=== PATIENT | female | born 1965 | race Two or more races ===

== ENCOUNTER 2016-12-09 16:16 | Inpatient (IN) | payer OTHER ==
[~2016-12-09] VITALS: Ht 160 cm; Wt 64.9 kg
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
--- NOTE | 2016-12-09 16:53 | Diagnostic Imaging Report ---
Indications: Altered mental status Technique: Spiral acquisitions obtained through the brain. Angled axial and coronal 5 x 5 mm slices were reconstructed. Total dose length product 1333 mGycm. CTDI vol(s) 70 mGy. Dose reduction achieved using automated exposure control Comparison: None Findings: No acute intracranial hemorrhage or edema. No mass effect or midline shift. Normal field-white differentiation. Old lacunar infarct is seen the posterior limb of the right internal capsule. Normal size ventricles and extra axial CSF spaces. There is bilateral maxillary sinus mucosal thickening. Intact calvarium. Mastoids are clear. Impression: Old right posterior limb internal capsule lacunar infarct. Negative for acute intracranial bleed or mass effect. The CT scanner at [facility] is accredited by the [employer] and the scans are performed using protocols designed to limit radiation exposure to as low as reasonably achievable to attain images of sufficient resolution adequate for diagnostic evaluation.
[2016-12-09 17:38] LABS: BASOPHILS % (AUTO) 0.8 % (0.0-2.0); EOSINOPHILS % (AUTO) 2.1 % (0.0-3.0); LYMPHOCYTES % (AUTO) 27.9 % (20.0-45.0); MEAN CORPUSCULAR HEMOGLOBIN 25.2 PG (27.0-31.0); MEAN CORPUSCULAR HGB CONC 29.9 G/DL (32.0-36.0); MEAN CORPUSCULAR VOLUME 84 FL (80-99); MEAN PLATELET VOLUME 6.7 FL (6.5-10.1); MONOCYTES % (AUTO) 9.2 % (1.0-10.0); PLATELET COUNT 342 K/UL (150-450); RED CELL DISTRIBUTION WIDTH 17.3 % (11.6-14.8); WHITE BLOOD COUNT 6.9 K/UL (4.8-10.8)
[2016-12-09 17:41] VITALS: BP 117/61
[2016-12-09 17:42] LABS: APPEARANCE,URINE CLEAR; KETONES,URINE NEGATIVE (NEGATIVE); LEUKOCYTE ESTERASE ,URINE 1+ (NEGATIVE); NITRITE,URINE NEGATIVE (NEGATIVE); PH,URINE 6 (4.5-8.0); PROTEIN,URINE NEGATIVE (NEGATIVE); UROBILINOGEN,URINE NORMAL MG/DL (0.0-1.0)
[2016-12-09] MEDS ORDERED: HYDROmorphone 1mg/ml Carpuject IVP ONE (17:45)
[2016-12-09 17:46] LABS: BACTERIA,URINE FEW /HPF; RBC,URINE 0-2 /HPF (0 - 2); SQUAMOUS EPITHELIAL CELL,UR FEW /LPF (NONE/OCC)
[2016-12-09 17:47] LABS: PROTHROMBIN TIME 10.6 SEC (9.30-11.50)
[2016-12-09 18:04] LABS: ALANINE AMINOTRANSFERASE 20 U/L (3-33); ALBUMIN/GLOBULIN RATIO 1.3 (1.0-2.7); ANION GAP 13 (5-15); ASPARTATE AMINO TRANSFERASE 22 U/L (5-40); CALCIUM 9.8 mg/dL (8.6-10.2); CARBON DIOXIDE 27 mEQ/L (20-30); CHLORIDE 100 mEQ/L (98-107); CREATININE 0.7 mg/dL (0.5-0.9); GLOMERULAR FILTRATION RATE > 60 mL/min (>60); HEMOLYSIS 1; POTASSIUM 3.5 mEQ/L (3.4-4.9); SODIUM 140 mEQ/L (135-145); TOTAL PROTEIN 7.6 g/dL (6.6-8.7); TROPONIN I < 0.30 ng/mL (<=0.30)
[2016-12-09 18:14] LABS: CKMB < 1.5 ng/mL (< 3.8)
[2016-12-09] MEDS ORDERED: HYDROmorphone 1mg/ml Carpuject IVP PRN ×3 (18:15→19:12)
--- NOTE | 2016-12-09 18:43 | Cardiology Progress Note ---
Assessment/Plan Assessment/Plan [id number] Objective Last 24 Hour Vital Signs Date Time Temp Pulse Resp B/P Pulse Ox O2 Delivery O2 Flow Rate FiO2 12/09/16 17:41 97.2 76 14 117/61 98 Room Air 12/09/16 16:27 97.2 85 12 131/57 98 Room Air Laboratory Tests Test 12/09/16 17:10 White Blood Count 6.9 K/UL (4.8-10.8) Red Blood Count 4.20 M/UL (4.20-5.40) Hemoglobin 10.6 G/DL (12.0-16.0) L Hematocrit 35.4 % (37.0-47.0) L Mean Corpuscular Volume 84 FL (80-99) Mean Corpuscular Hemoglobin 25.2 PG (27.0-31.0) L Mean Corpuscular Hemoglobin Concent 29.9 G/DL (32.0-36.0) L Red Cell Distribution Width 17.3 % (11.6-14.8) H Platelet Count 342 K/UL (150-450) Mean Platelet Volume 6.7 FL (6.5-10.1) Neutrophils (%) (Auto) 60.0 % (45.0-75.0) Lymphocytes (%) (Auto) 27.9 % (20.0-45.0) Monocytes (%) (Auto) 9.2 % (1.0-10.0) Eosinophils (%) (Auto) 2.1 % (0.0-3.0) Basophils (%) (Auto) 0.8 % (0.0-2.0) Prothrombin Time 10.6 SEC (9.30-11.50) Prothromb Time International Ratio 1.0 (0.9-1.1) Activated Partial Thromboplast Time 26 SEC (23-33) Urine Color Pale yellow Urine Appearance Clear Urine pH 6 (4.5-8.0) Urine Specific [place] 1.010 (1.005-1.035) Urine Protein Negative (NEGATIVE) Urine Glucose (UA) Negative (NEGATIVE) Urine Ketones Negative (NEGATIVE) Urine Occult Blood Negative (NEGATIVE) Urine Nitrite Negative (NEGATIVE) Urine Bilirubin Negative (NEGATIVE) Urine Urobilinogen Normal MG/DL (0.0-1.0) Urine Leukocyte Esterase 1+ (NEGATIVE) H Urine RBC 0-2 /HPF (0 - 2) Urine WBC 2-4 /HPF (0 - 2) Urine Squamous Epithelial Cells Few /LPF (NONE/OCC) Urine Bacteria Few /HPF (NONE) Urine HCG, Qualitative Negative Sodium Level 140 mEQ/L (135-145) Potassium Level 3.5 mEQ/L (3.4-4.9) Chloride Level 100 mEQ/L (98-107) Carbon Dioxide Level 27 mEQ/L (20-30) Anion Gap 13 (5-15) Blood Urea Nitrogen 9 mg/dL (7-23) Creatinine 0.7 mg/dL (0.5-0.9) Estimat Glomerular Filtration Rate > 60 mL/min (>60) Glucose Level 117 mg/dL (74-106) H Calcium Level 9.8 mg/dL (8.6-10.2) Total Bilirubin 0.2 mg/dL (0.0-1.2) Aspartate Amino Transf (AST/SGOT) 22 U/L (5-40) Alanine Aminotransferase (ALT/SGPT) 20 U/L (3-33) Alkaline Phosphatase 93 U/L (35-104) Total Creatine Kinase 35 U/L (26-140) Creatine Kinase MB < 1.5 ng/mL (< 3.8) Creatine Kinase MB Relative Index Troponin I < 0.30 ng/mL (<=0.30) Total Protein 7.6 g/dL (6.6-8.7) Albumin 4.4 g/dL (3.5-5.2) Globulin 3.2 g/dL Albumin/Globulin Ratio 1.3 (1.0-2.7) Urine Opiates Screen Positive (NEGATIVE) H Urine Barbiturates Screen Negative (NEGATIVE) Phencyclidine (PCP) Screen Negative (NEGATIVE) Urine Amphetamines Screen Negative (NEGATIVE) Urine Benzodiazepines Screen Negative (NEGATIVE) Urine Cocaine Screen Negative (NEGATIVE) Urine Marijuana (THC) Screen Negative (NEGATIVE) TWIN MARTINEZ Dec 09, 2016 18:43
[2016-12-09] MEDS ORDERED: Milk of Magnesia 30ml Ud ORAL PRN (18:45)
[2016-12-09] MEDS ORDERED: Norco 5mg/325mg tab ORAL PRN (18:45)
[2016-12-09 19:51] VITALS: BP 106/66
[2016-12-09 20:00] VITALS: BP 107/69
[2016-12-09] MEDS ORDERED: CYMBALTA20 MG ORAL (20:13)
[2016-12-09] MEDS ORDERED: LEVETIRACETAM750 MG ORAL (20:13)
[2016-12-09] MEDS ORDERED: NAPROXEN500 M2 ORAL (20:13)
[2016-12-09] MEDS ORDERED: CELEBREX100 MG ORAL (20:13)
[2016-12-09] MEDS ORDERED: NORCO 5-325 TA1 EACH ORAL (20:13)
[2016-12-09] MEDS ORDERED: GABAPENTIN600 MG ORAL (20:13)
[2016-12-09] MEDS ORDERED: GABAPENTIN300 MG ORAL (20:13)
[2016-12-09] MEDS: Docusate 100mg cap ORAL SCH (20:55)
[2016-12-09] MEDS: Heparin 5000 units/ml inj SUBQ SCH (20:56)
[2016-12-10 00:14] VITALS: BP 140/71
[2016-12-10 04:15] VITALS: BP 156/85
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
[2016-12-10] MEDS ORDERED: Naloxone 0.4mg/ml Inj IVP ONE (06:15)
[2016-12-10 06:53] LABS: ABG ALLEN TEST POSITIVE; ABG BASE EXCESS 1.8; ABG PCO2 47.7 mmHg (35.0-45.0)
[2016-12-10 07:35] VITALS: BP 139/76
[2016-12-10 08:15] LABS: BASOPHILS % (AUTO) 0.6 % (0.0-2.0); EOSINOPHILS % (AUTO) 0.4 % (0.0-3.0); LYMPHOCYTES % (AUTO) 8.3 % (20.0-45.0); MEAN CORPUSCULAR HEMOGLOBIN 26.5 PG (27.0-31.0); MEAN CORPUSCULAR HGB CONC 31.1 G/DL (32.0-36.0); MEAN CORPUSCULAR VOLUME 85 FL (80-99); MEAN PLATELET VOLUME 7.2 FL (6.5-10.1); MONOCYTES % (AUTO) 6.8 % (1.0-10.0); NEUTROPHILS % (AUTO) 83.9 % (45.0-75.0); PLATELET COUNT 340 K/UL (150-450); RED BLOOD COUNT 3.66 M/UL (4.20-5.40); RED CELL DISTRIBUTION WIDTH 17.4 % (11.6-14.8); WHITE BLOOD COUNT 9.8 K/UL (4.8-10.8)
[2016-12-10] MEDS: Heparin 5000 units/ml inj SUBQ SCH ×2 (08:31→20:55)
[2016-12-10] MEDS: Docusate 100mg cap ORAL SCH ×2 (08:34→20:54)
[2016-12-10] MEDS ORDERED: Naproxen 500mg tab ORAL SCH (09:00)
[2016-12-10] MEDS ORDERED: celeBREX 100mg Cap **SURGERY PATIENTS ONLY ORAL SCH (09:00)
[2016-12-10 09:11] LABS: ALANINE AMINOTRANSFERASE 21 U/L (3-33); ALBUMIN/GLOBULIN RATIO 1.3 (1.0-2.7); ANION GAP 12 (5-15); ASPARTATE AMINO TRANSFERASE 25 U/L (5-40); CALCIUM 9.5 mg/dL (8.6-10.2); CARBON DIOXIDE 27 mEQ/L (20-30); CHLORIDE 102 mEQ/L (98-107); CHOLESTEROL 201 mg/dL (< 200); CHOLESTEROL/HDL RATIO 3.7 (3.3-4.4); CREATININE 0.7 mg/dL (0.5-0.9); GLOMERULAR FILTRATION RATE > 60 mL/min (>60); HEMOLYSIS 1; LDL CHOLESTEROL (CALC.) 125 mg/dL (60-99); MAGNESIUM 1.7 mg/dL (1.7-2.5); POTASSIUM 3.6 mEQ/L (3.4-4.9); SODIUM 141 mEQ/L (135-145); TOTAL PROTEIN 7.2 g/dL (6.6-8.7)
[2016-12-10 09:43] LABS: HEMOGLOBIN A1C 5.9 % (< 6.0)
--- NOTE | 2016-12-10 11:24 | Diagnostic Imaging Report ---
Indication: Chest pain Technique: Single portable AP view of the chest. Findings: Comparison: None. Linear density left lung base. Right lung clear. The bones and extra pulmonary soft tissues, cardiomediastinal silhouette, pulmonary vasculature, and pleural surfaces are unremarkable. IMPRESSION: Subsegmental atelectasis versus scarring left lung base Otherwise negative portable AP chest.
[2016-12-10 11:55] VITALS: BP 141/71
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
[2016-12-10 16:11] VITALS: BP 149/78
[2016-12-10] MEDS ORDERED: traMADol 50mg tab ORAL PRN (16:45)
--- NOTE | 2016-12-10 17:22 | Cardiology Progress Note ---
Assessment/Plan Assessment/Plan 1. Posttraumatic pain in different parts of the body including the neck, low back, and right knee pain. 2. Posttraumatic right cerebral hemorrhage. 3. Posttraumatic convulsion and seizure history. 4. Posttraumatic quadriparesis and quadriplegia. 5. Urinary incontinence. 6. Right shoulder impingement syndrome with subacromial bursitis and supraspinatus tendinitis history. 7. Posttraumatic left-sided rib fracture. i was notified of pt having hypopenia and tachy post iv Dilaudid narcan was given pt improved back to normal pt claims got iv med then rn asked if she was still in pain adn adminsterd more pain meds thats when she had sob i have dcd all iv narcotic will need to sty with pos only she feels and looks better today then she did last ntie when i saw her in er is more responsive she is drinking her coffee stirring her coffee her colon therapist is at her bedside and we discussed lashanda above episode labs noted mri of brain and spine noted will d/s dr jeremy márquez cx still pending need snf she need alot of assistance with adl Objective Last 24 Hour Vital Signs Date Time Temp Pulse Resp B/P Pulse Ox O2 Delivery O2 Flow Rate FiO2 12/10/16 16:11 97.6 88 20 149/78 99 Room Air 12/10/16 15:44 95 12/10/16 11:55 98.1 99 20 141/71 99 Room Air 12/10/16 11:26 100 12/10/16 07:35 97.8 92 20 139/76 100 Nasal Cannula 2.0 12/10/16 07:28 101 12/10/16 04:15 98.6 82 19 156/85 97 Room Air 12/10/16 04:00 113 12/10/16 00:14 98.8 98 18 140/71 95 Room Air 12/10/16 00:00 95 12/09/16 20:00 77 12/09/16 20:00 97.2 75 22 107/69 97 Room Air 12/09/16 19:51 82 20 106/66 97 Room Air 12/09/16 19:51 97.2 82 20 106/66 97 Room Air 12/09/16 17:41 97.2 76 14 117/61 98 Room Air Intake and Output 12/09/16 12/10/16 19:00 07:00 # Voids 3 Laboratory Tests Test 12/09/16 17:10 12/10/16 06:45 12/10/16 07:15 White Blood Count 6.9 K/UL (4.8-10.8) 9.8 K/UL (4.8-10.8) Red Blood Count 4.20 M/UL (4.20-5.40) 3.66 M/UL (4.20-5.40) L Hemoglobin 10.6 G/DL (12.0-16.0) L 9.7 G/DL (12.0-16.0) L Hematocrit 35.4 % (37.0-47.0) L 31.2 % (37.0-47.0) L Mean Corpuscular Volume 84 FL (80-99) 85 FL (80-99) Mean Corpuscular Hemoglobin 25.2 PG (27.0-31.0) L 26.5 PG (27.0-31.0) L Mean Corpuscular Hemoglobin Concent 29.9 G/DL (32.0-36.0) L 31.1 G/DL (32.0-36.0) L Red Cell Distribution Width 17.3 % (11.6-14.8) H 17.4 % (11.6-14.8) H Platelet Count 342 K/UL (150-450) 340 K/UL (150-450) Mean Platelet Volume 6.7 FL (6.5-10.1) 7.2 FL (6.5-10.1) Neutrophils (%) (Auto) 60.0 % (45.0-75.0) 83.9 % (45.0-75.0) H Lymphocytes (%) (Auto) 27.9 % (20.0-45.0) 8.3 % (20.0-45.0) L Monocytes (%) (Auto) 9.2 % (1.0-10.0) 6.8 % (1.0-10.0) Eosinophils (%) (Auto) 2.1 % (0.0-3.0) 0.4 % (0.0-3.0) Basophils (%) (Auto) 0.8 % (0.0-2.0) 0.6 % (0.0-2.0) Prothrombin Time 10.6 SEC (9.30-11.50) Prothromb Time International Ratio 1.0 (0.9-1.1) Activated Partial Thromboplast Time 26 SEC (23-33) Urine Color Pale yellow Urine Appearance Clear Urine pH 6 (4.5-8.0) Urine Specific [place] 1.010 (1.005-1.035) Urine Protein Negative (NEGATIVE) Urine Glucose (UA) Negative (NEGATIVE) Urine Ketones Negative (NEGATIVE) Urine Occult Blood Negative (NEGATIVE) Urine Nitrite Negative (NEGATIVE) Urine Bilirubin Negative (NEGATIVE) Urine Urobilinogen Normal MG/DL (0.0-1.0) Urine Leukocyte Esterase 1+ (NEGATIVE) H Urine RBC 0-2 /HPF (0 - 2) Urine WBC 2-4 /HPF (0 - 2) Urine Squamous Epithelial Cells Few /LPF (NONE/OCC) Urine Bacteria Few /HPF (NONE) Urine HCG, Qualitative Negative Sodium Level 140 mEQ/L (135-145) 141 mEQ/L (135-145) Potassium Level 3.5 mEQ/L (3.4-4.9) 3.6 mEQ/L (3.4-4.9) Chloride Level 100 mEQ/L (98-107) 102 mEQ/L (98-107) Carbon Dioxide Level 27 mEQ/L (20-30) 27 mEQ/L (20-30) Anion Gap 13 (5-15) 12 (5-15) Blood Urea Nitrogen 9 mg/dL (7-23) 13 mg/dL (7-23) Creatinine 0.7 mg/dL (0.5-0.9) 0.7 mg/dL (0.5-0.9) Estimat Glomerular Filtration Rate > 60 mL/min (>60) > 60 mL/min (>60) Glucose Level 117 mg/dL (74-106) H 147 mg/dL (74-106) H Calcium Level 9.8 mg/dL (8.6-10.2) 9.5 mg/dL (8.6-10.2) Total Bilirubin 0.2 mg/dL (0.0-1.2) 0.2 mg/dL (0.0-1.2) Aspartate Amino Transf (AST/SGOT) 22 U/L (5-40) 25 U/L (5-40) Alanine Aminotransferase (ALT/SGPT) 20 U/L (3-33) 21 U/L (3-33) Alkaline Phosphatase 93 U/L (35-104) 88 U/L (35-104) Total Creatine Kinase 35 U/L (26-140) Creatine Kinase MB < 1.5 ng/mL (< 3.8) Creatine Kinase MB Relative Index Troponin I < 0.30 ng/mL (<=0.30) Total Protein 7.6 g/dL (6.6-8.7) 7.2 g/dL (6.6-8.7) Albumin 4.4 g/dL (3.5-5.2) 4.1 g/dL (3.5-5.2) Globulin 3.2 g/dL 3.1 g/dL Albumin/Globulin Ratio 1.3 (1.0-2.7) 1.3 (1.0-2.7) Urine Opiates Screen Positive (NEGATIVE) H Urine Barbiturates Screen Negative (NEGATIVE) Phencyclidine (PCP) Screen Negative (NEGATIVE) Urine Amphetamines Screen Negative (NEGATIVE) Urine Benzodiazepines Screen Negative (NEGATIVE) Urine Cocaine Screen Negative (NEGATIVE) Urine Marijuana (THC) Screen Negative (NEGATIVE) Arterial Blood pH 7.370 (7.350-7.450) Arterial Blood Partial Pressure CO2 47.7 mmHg (35.0-45.0) H Arterial Blood Partial Pressure O2 389.0 mmHg (75.0-100.0) H Arterial Blood HCO3 27.5 mmol/L (22.0-26.0) H Arterial Blood Oxygen Saturation 99.6 % (92.0-98.0) H Arterial Blood Base Excess 1.8 Mehul Test Positive Hemoglobin A1c 5.9 % (< 6.0) Magnesium Level 1.7 mg/dL (1.7-2.5) Triglycerides Level 104 mg/dL (< 150) Cholesterol Level 201 mg/dL (< 200) H LDL Cholesterol 125 mg/dL (60-99) H HDL Cholesterol 55 mg/dL (> 60) Cholesterol/HDL Ratio 3.7 (3.3-4.4) Vitamin B12 Level > 2000 pg/mL (211-946) H Thyroid Stimulating Hormone (TSH) 1.450 uIU/mL (0.300-4.500) TWIN MARTINEZ Dec 10, 2016 17:22
[2016-12-10] MEDS: traMADol 50mg tab ORAL PRN (17:23)
[2016-12-10] MEDS ORDERED: Norco 5mg/325mg tab ORAL PRN ×2 (17:30→18:17)
[2016-12-10 20:09] VITALS: BP 111/54
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
[2016-12-11 00:01] VITALS: BP 100/61
[2016-12-11 04:01] VITALS: BP 105/64
[2016-12-11 08:00] VITALS: BP 121/82
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
[2016-12-11] MEDS: Docusate 100mg cap ORAL SCH ×2 (09:15→20:28)
[2016-12-11] MEDS: Heparin 5000 units/ml inj SUBQ SCH ×2 (09:17→20:30)
[2016-12-11 12:00] VITALS: BP 127/78
--- NOTE | 2016-12-11 13:27 | Neurology Progress Note ---
Objective Physical Exam Last Vital Signs Date Time Temp Pulse Resp B/P Pulse Ox O2 Delivery O2 Flow Rate FiO2 12/11/16 12:00 97.7 79 18 127/78 98 Room Air 12/10/16 07:35 2.0 Impression/Recommendations Problems: (1) Closed TBI (traumatic brain injury) (2) h/o intracranial bleed, now resolved (3) Closed T2 fracture (4) depression, anxiety (5) posttraumatic generalised seizure disorder. Status: stable Recommendations neuroreevaluation #[id number] BAYRON CAUSEY Dec 11, 2016 13:27
--- NOTE | 2016-12-11 13:36 | Neurology Progress Note ---
Objective Physical Exam Last Vital Signs Date Time Temp Pulse Resp B/P Pulse Ox O2 Delivery O2 Flow Rate FiO2 12/11/16 12:00 97.7 79 18 127/78 98 Room Air 12/10/16 07:35 2.0 Impression/Recommendations Problems: (1) Closed TBI (traumatic brain injury) (2) h/o intracranial bleed, now resolved (3) Closed T2 fracture (4) depression, anxiety (5) posttraumatic generalised seizure disorder. Status: stable Recommendations neuroreevaluation #[id number] to remove c=-collar will need request spine surgery BAYRON Morely Dec 11, 2016 13:36
[2016-12-11 16:00] VITALS: BP 127/75
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
[2016-12-11] MEDS ORDERED: DULoxetine 30mg cap ORAL SCH (18:19)
[2016-12-11 18:27] LABS: APPEARANCE,URINE CLEAR; KETONES,URINE NEGATIVE (NEGATIVE); LEUKOCYTE ESTERASE ,URINE 1+ (NEGATIVE); NITRITE,URINE NEGATIVE (NEGATIVE); PH,URINE 8 (4.5-8.0); PROTEIN,URINE NEGATIVE (NEGATIVE); UROBILINOGEN,URINE NORMAL MG/DL (0.0-1.0)
[2016-12-11] MEDS: DULoxetine 30mg cap ORAL SCH (18:35)
[2016-12-11 18:36] LABS: RBC,URINE 0-2 /HPF (0 - 2); SQUAMOUS EPITHELIAL CELL,UR OCCASIONAL /LPF (NONE/OCC); WBC,URINE 0-2 /HPF (0 - 2)
[2016-12-11 20:00] VITALS: BP 131/77
[2016-12-11] MEDS: traMADol 50mg tab ORAL PRN (20:12)
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
[2016-12-12 00:10] VITALS: BP 113/65
[2016-12-12 04:30] VITALS: BP 130/80
[2016-12-12 07:38] VITALS: BP 125/71
[2016-12-12 08:12] LABS: ANION GAP 11 (5-15); CALCIUM 9.7 mg/dL (8.6-10.2); CARBON DIOXIDE 27 mEQ/L (20-30); CHLORIDE 96 mEQ/L (98-107); CREATININE 0.6 mg/dL (0.5-0.9); GLOMERULAR FILTRATION RATE > 60 mL/min (>60); HEMOLYSIS 3; POTASSIUM 3.9 mEQ/L (3.4-4.9); SODIUM 134 mEQ/L (135-145)
[2016-12-12] MEDS: DULoxetine 30mg cap ORAL SCH ×2 (08:28→17:19)
[2016-12-12] MEDS: traMADol 50mg tab ORAL PRN (08:29)
[2016-12-12] MEDS: Docusate 100mg cap ORAL SCH ×2 (08:30→20:27)
[2016-12-12] MEDS: Heparin 5000 units/ml inj SUBQ SCH ×2 (08:32→20:27)
[2016-12-12 11:50] VITALS: BP 121/58
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
[2016-12-12 15:32] VITALS: BP 101/57
[2016-12-12 20:00] VITALS: BP 125/73
[2016-12-12] MEDS ORDERED: Milk of Magnesia 30ml Ud ORAL PRN (22:07)
[2016-12-13] VITALS: BP 121/76
[2016-12-13 04:00] VITALS: BP 114/72
[2016-12-13] MEDS: Norco 5mg/325mg tab ORAL PRN (05:15)
[2016-12-13 08:32] VITALS: BP 114/70
[2016-12-13] MEDS: Docusate 100mg cap ORAL SCH ×2 (09:30→20:57)
[2016-12-13] MEDS: DULoxetine 30mg cap ORAL SCH ×2 (09:30→17:13)
[2016-12-13] MEDS: Heparin 5000 units/ml inj SUBQ SCH ×2 (09:34→20:58)
[2016-12-13 12:00] VITALS: BP 122/72
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
--- NOTE | 2016-12-13 13:31 | Neurology Progress Note ---
Interim History Interim History ROS Limited/Unobtainable: Yes Complaints: pain all body, both shoulders, low back,weakness R side Events: more coherent "feel little better" Objective Physical Exam Last Vital Signs Date Time Temp Pulse Resp B/P Pulse Ox O2 Delivery O2 Flow Rate FiO2 12/13/16 08:32 98.1 69 18 114/70 98 Room Air 12/10/16 07:35 2.0 General: well developed, well nourished, no acute distress, other - family at bedsde, diffuse tenderness shoulders, low back Head: normocophalic, atraumatic Neck: other - tender EENT: benign Neurologic Exam Mental Status: awake, alert, other - poor historian slow responces Speech: normal speech, no dysarthia Language: normal language, no aphasia Cranial Nerve II: fundus normal, visual mart, no papilledema Cranial Nerves III, IV, : PERRLA, EOMI, pupils Cranial Nerve V: temporales function normal, masseters function normal, pterygoids function normal Cranial Nerve VII: no facial asymmetry, normal facial expressions Cranial Nerve VIII: normal hearing, no nystagmus Cranial Nerve IX: normal palate elevation, gag response Cranial Nerve X: no voice hoarseness Cranial Nerve XI: SCM symmetric, trapezii function normal Cranial Nerve XII: tongue midline, no tongue atrophy/fasciculations Motor System: normal muscle tone, no involuntary movement, no muscle wasting, other - poor efforts, moan, able lift arms legs against gravity briefly , R led 4/5 Sensory: other - inconsistant Coordination: normal finger to nose bilaterally Deep Tendon Reflexes: 1+ ankle (L), 1+ ankle (R), 1+ bicep (L), 1+ bicep (R), 1 + brachioradialis (L), 1+ brachioradialis (R), 1+ tricep (L), 1+ tricep (R), 2+ knee (L), 3+ knee (R) Reflexes: flexor plantar (L), flexor plantar (R) Stance: other Gait: other Impression/Recommendations Problems: (1) Closed TBI (traumatic brain injury) (2) h/o intracranial bleed, now resolved (3) Closed T2 fracture (4) depression, anxiety (5) posttraumatic generalised seizure disorder. Status: stable, unchanged Recommendations neuroreevaluation #[id number] to remove cervical-collar ----- will need request spine surgery eval pt/ot/rehab cont present rx BAYRON CAUSEY Dec 13, 2016 13:31
[2016-12-13 16:00] VITALS: BP 100/62
[2016-12-13 20:00] VITALS: BP 100/61
[2016-12-14] VITALS: BP 133/69
[2016-12-14 01:12] LABS: APPEARANCE,URINE CLOUDY; KETONES,URINE NEGATIVE (NEGATIVE); LEUKOCYTE ESTERASE ,URINE 3+ (NEGATIVE); NITRITE,URINE POSITIVE (NEGATIVE); PH,URINE 6 (4.5-8.0); PROTEIN,URINE 1+ (NEGATIVE); UROBILINOGEN,URINE NORMAL MG/DL (0.0-1.0)
[2016-12-14 01:26] LABS: BACTERIA,URINE FEW /HPF; SQUAMOUS EPITHELIAL CELL,UR FEW /LPF (NONE/OCC); WBC,URINE 20-30 /HPF (0 - 2)
[2016-12-14 04:00] VITALS: BP 120/69
[2016-12-14 08:00] VITALS: BP 103/59
[2016-12-14] MEDS: Docusate 100mg cap ORAL SCH ×2 (08:38→21:28)
[2016-12-14] MEDS: DULoxetine 30mg cap ORAL SCH ×2 (08:38→17:27)
[2016-12-14] MEDS: Heparin 5000 units/ml inj SUBQ SCH ×2 (08:42→21:36)
--- NOTE | 2016-12-14 11:22 | Neurology Progress Note ---
Interim History Interim History ROS Limited/Unobtainable: Yes Complaints: pain R shoulder,R knee, generalised aches/pain Events: more coherent "feel little better",sleep well Objective Physical Exam Last Vital Signs Date Time Temp Pulse Resp B/P Pulse Ox O2 Delivery O2 Flow Rate FiO2 12/14/16 08:00 96.2 80 18 103/59 94 Room Air 12/13/16 20:00 131.0 73 Laboratory Tests Test 12/14/16 00:15 Urine Color Yellow Urine Appearance Cloudy Urine pH 6 (4.5-8.0) Urine Specific [place] 1.015 (1.005-1.035) Urine Protein 1+ (NEGATIVE) H Urine Glucose (UA) Negative (NEGATIVE) Urine Ketones Negative (NEGATIVE) Urine Occult Blood 1+ (NEGATIVE) H Urine Nitrite Positive (NEGATIVE) H Urine Bilirubin Negative (NEGATIVE) Urine Urobilinogen Normal MG/DL (0.0-1.0) Urine Leukocyte Esterase 3+ (NEGATIVE) H Urine RBC 2-4 /HPF (0 - 2) H Urine WBC 20-30 /HPF (0 - 2) H Urine Squamous Epithelial Cells Few /LPF (NONE/OCC) Urine Bacteria Few /HPF (NONE) General: well developed, well nourished, no acute distress, other - , diffuse tenderness shouldersR>L, Rknee,, low back/upper back Head: normocophalic, atraumatic Neck: other - tender EENT: benign Neurologic Exam Mental Status: awake, alert, other - poor historian slow responces, now coherent follows all commands Speech: normal speech, no dysarthia, other - slow Language: normal language, no aphasia Cranial Nerve II: fundus normal, visual mart, no papilledema Cranial Nerves III, IV, : PERRLA, EOMI, pupils Cranial Nerve V: temporales function normal, masseters function normal, pterygoids function normal Cranial Nerve VII: no facial asymmetry, normal facial expressions Cranial Nerve VIII: normal hearing, no nystagmus Cranial Nerve IX: normal palate elevation, gag response Cranial Nerve X: no voice hoarseness Cranial Nerve XI: SCM symmetric, trapezii function normal Cranial Nerve XII: tongue midline, no tongue atrophy/fasciculations Motor System: normal muscle tone, no involuntary movement, no muscle wasting, other - poor efforts, moan, able lift arms legs against gravity briefly , R =L Sensory: other - inconsistant Coordination: normal finger to nose bilaterally Deep Tendon Reflexes: 1+ ankle (L), 1+ ankle (R), 1+ bicep (L), 1+ bicep (R), 1 + brachioradialis (L), 1+ brachioradialis (R), 1+ tricep (L), 1+ tricep (R), 2+ knee (L), 3+ knee (R) Reflexes: flexor plantar (L), flexor plantar (R) Stance: other Gait: other - slow stooped, with assist Impression/Recommendations Problems: (1) Closed TBI (traumatic brain injury) (2) h/o intracranial bleed, now resolved (3) Closed T2 fracture (4) depression, anxiety (5) posttraumatic generalised seizure disorder. Status: stable, unchanged Recommendations neuroreevaluation # [id number] to remove cervical-collar ----- will need request spine surgery eval pt/ot/rehab cont present rx ok d/c to [facility] BAYRON CAUSEY Dec 14, 2016 11:22
[2016-12-14 12:00] VITALS: BP 94/53
[2016-12-14] MEDS: Norco 5mg/325mg tab ORAL PRN (14:38)
[2016-12-14 16:00] VITALS: BP 111/69
[2016-12-14 20:00] VITALS: BP 120/67
--- NOTE | 2016-12-14 20:01 | Cardiology Progress Note ---
Assessment/Plan Assessment/Plan 1. Posttraumatic pain in different parts of the body including the neck, low back, and right knee pain. 2. Posttraumatic right cerebral hemorrhage. 3. Posttraumatic convulsion and seizure history. 4. Posttraumatic quadriparesis and quadriplegia. 5. Urinary incontinence. 6. Right shoulder impingement syndrome with subacromial bursitis and supraspinatus tendinitis history. 7. Posttraumatic left-sided rib fracture. urine neg growth on po pain meds on ly no iv narcotics awaiat snf admission she loosk better Subjective Cardiovascular: Denies: chest pain Respiratory: Denies: shortness of breath Genitourinary: Denies: frequency Subjective lying in bed readiogn on her cellphone Objective Last 24 Hour Vital Signs Date Time Temp Pulse Resp B/P Pulse Ox O2 Delivery O2 Flow Rate FiO2 12/14/16 16:00 97.2 78 18 111/69 100 Room Air 12/14/16 15:37 97.3 12/14/16 12:00 97.3 81 19 94/53 97 Room Air 12/14/16 08:00 96.2 80 18 103/59 94 Room Air 12/14/16 04:00 99.0 74 16 120/69 98 Room Air 12/14/16 00:00 98.5 81 18 133/69 99 Room Air General Appearance: no apparent distress, alert Neck: no JVD Cardiovascular: normal rate, regular rhythm Respiratory/Chest: lungs clear, normal breath sounds Abdomen: normal bowel sounds, non tender, soft Extremities: no swelling Intake and Output 12/13/16 12/14/16 19:00 07:00 Intake Total 480 ml 240 ml Output Total 175 ml Balance 480 ml 65 ml Intake Oral 480 ml 240 ml Output Urine Total 175 ml # Voids 3 Laboratory Tests Test 12/14/16 00:15 Urine Color Yellow Urine Appearance Cloudy Urine pH 6 (4.5-8.0) Urine Specific [place] 1.015 (1.005-1.035) Urine Protein 1+ (NEGATIVE) H Urine Glucose (UA) Negative (NEGATIVE) Urine Ketones Negative (NEGATIVE) Urine Occult Blood 1+ (NEGATIVE) H Urine Nitrite Positive (NEGATIVE) H Urine Bilirubin Negative (NEGATIVE) Urine Urobilinogen Normal MG/DL (0.0-1.0) Urine Leukocyte Esterase 3+ (NEGATIVE) H Urine RBC 2-4 /HPF (0 - 2) H Urine WBC 20-30 /HPF (0 - 2) H Urine Squamous Epithelial Cells Few /LPF (NONE/OCC) Urine Bacteria Few /HPF (NONE) TWIN MARTINEZ Dec 14, 2016 20:01
[2016-12-14] MEDS: traMADol 50mg tab ORAL PRN (21:37)
[2016-12-15 00:30] VITALS: BP 116/71
[2016-12-15 04:00] VITALS: BP 117/58
[2016-12-15 08:00] VITALS: BP 117/74
[2016-12-15] MEDS: Docusate 100mg cap ORAL SCH ×2 (08:37→21:32)
[2016-12-15] MEDS: DULoxetine 30mg cap ORAL SCH ×2 (08:37→17:37)
[2016-12-15] MEDS: Heparin 5000 units/ml inj SUBQ SCH ×2 (08:39→21:35)
[2016-12-15] MEDS: Norco 5mg/325mg tab ORAL PRN ×2 (09:36→15:44)
[2016-12-15 12:00] VITALS: BP 98/58
[2016-12-15 15:42] VITALS: BP 118/76
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
--- NOTE | 2016-12-15 16:14 | Cardiology Progress Note ---
Assessment/Plan Assessment/Plan 1. Posttraumatic pain in different parts of the body including the neck, low back, and right knee pain. 2. Posttraumatic right cerebral hemorrhage. 3. Posttraumatic convulsion and seizure history. 4. Posttraumatic quadriparesis and quadriplegia. 5. Urinary incontinence. 6. Right shoulder impingement syndrome with subacromial bursitis and supraspinatus tendinitis history. 7. Posttraumatic left-sided rib fracture. urine neg growth on po pain meds on ly no iv narcotics awaiat snf admission she loosk better mom Subjective Cardiovascular: Denies: chest pain Respiratory: Denies: shortness of breath Gastrointestinal/Abdominal: Reports: constipated Genitourinary: Denies: burning Subjective walking in the room on my arrival by herself holdign on lashanda bed Objective Last 24 Hour Vital Signs Date Time Temp Pulse Resp B/P Pulse Ox O2 Delivery O2 Flow Rate FiO2 12/15/16 15:42 97.5 80 20 118/76 98 Room Air 12/15/16 12:00 98.2 79 20 98/58 99 Room Air 12/15/16 08:00 98.4 74 20 117/74 99 Room Air 12/15/16 04:00 97.4 74 19 117/58 99 Room Air 12/15/16 00:30 97.6 80 20 116/71 100 Room Air 12/14/16 22:46 97.9 12/14/16 20:00 97.9 74 18 120/67 100 Room Air General Appearance: no apparent distress, alert Neck: supple Cardiovascular: normal rate, regular rhythm Respiratory/Chest: lungs clear, normal breath sounds Abdomen: normal bowel sounds, non tender, soft Extremities: no swelling Intake and Output 12/14/16 12/15/16 19:00 07:00 Intake Total 400 ml Balance 400 ml Intake Oral 400 ml # Voids 2 2 Microbiology Date/Time Source Procedure Growth Status 12/14/16 00:15 Urine,Clean Catch Urine Culture - Preliminary Gram Negative Bacillus 1 Resulted TWIN MARTINEZ Dec 15, 2016 16:14
[2016-12-15 20:00] VITALS: BP 103/57
[2016-12-16] VITALS: BP 112/67
[2016-12-16 04:00] VITALS: BP 102/57
[2016-12-16 07:58] VITALS: BP 99/58
[2016-12-16] MEDS: DULoxetine 30mg cap ORAL SCH ×2 (08:42→17:10)
[2016-12-16] MEDS: Docusate 100mg cap ORAL SCH ×2 (08:42→21:20)
[2016-12-16] MEDS: Norco 5mg/325mg tab ORAL PRN ×2 (08:43→15:50)
[2016-12-16] MEDS: Heparin 5000 units/ml inj SUBQ SCH ×2 (08:48→21:22)
[2016-12-16 11:56] VITALS: BP 102/51
[2016-12-16] MEDS: traMADol 50mg tab ORAL PRN (13:08)
[2016-12-16 15:47] VITALS: BP 117/77
--- NOTE | 2016-12-16 16:10 | Diagnostic Imaging Report ---
Indication: Abdominal pain Technique: Supine view of the abdomen Comparison: none Findings: Bowel gas pattern is unremarkable. No unusual masses or calcifications. Impression: No acute process
--- NOTE | 2016-12-16 19:26 | Cardiology Progress Note ---
Assessment/Plan Assessment/Plan 1. Posttraumatic pain in different parts of the body including the neck, low back, and right knee pain. 2. Posttraumatic right cerebral hemorrhage. 3. Posttraumatic convulsion and seizure history. 4. Posttraumatic quadriparesis and quadriplegia. 5. Urinary incontinence. 6. Right shoulder impingement syndrome with subacromial bursitis and supraspinatus tendinitis history. 7. Posttraumatic left-sided rib fracture. urine neg growth on po pain meds on ly no iv narcotics awaiat snf admission naueated today got zofranand compazien drandk ensure but not otehr food i gave dulcolox suppository wtih success in bm will have kub will have labs isan am dc tramadol dc meloxicam znatac Subjective Cardiovascular: Denies: chest pain, lightheadedness Respiratory: Denies: shortness of breath Gastrointestinal/Abdominal: Reports: nausea, Denies: abdominal pain Genitourinary: Denies: burning Subjective Objective Last 24 Hour Vital Signs Date Time Temp Pulse Resp B/P Pulse Ox O2 Delivery O2 Flow Rate FiO2 12/16/16 15:47 97.7 84 20 117/77 100 Room Air 12/16/16 11:56 97.1 86 20 102/51 96 Room Air 12/16/16 07:58 98.1 63 18 99/58 99 Room Air 12/16/16 04:00 98.5 69 16 102/57 100 Room Air 12/16/16 00:00 98.4 76 17 112/67 98 Room Air 12/15/16 20:00 98.3 94 18 103/57 99 Room Air General Appearance: alert Neck: supple Cardiovascular: normal rate, regular rhythm Respiratory/Chest: lungs clear, normal breath sounds Abdomen: normal bowel sounds, non tender, soft Extremities: no swelling Intake and Output 12/15/16 12/16/16 19:00 07:00 Intake Total 580 ml Balance 580 ml Intake Oral 580 ml # Voids 2 2 Microbiology Date/Time Source Procedure Growth Status 12/14/16 00:15 Urine,Clean Catch Urine Culture - Final Escherichia Coli Complete TWIN MARTINEZ Dec 16, 2016 19:26
[2016-12-16 20:15] VITALS: BP 105/49
[2016-12-17 00:05] VITALS: BP 101/62
[2016-12-17 04:11] VITALS: BP 102/65
[2016-12-17 07:11] LABS: BASOPHILS % (AUTO) 0.6 % (0.0-2.0); EOSINOPHILS % (AUTO) 2.7 % (0.0-3.0); LYMPHOCYTES % (AUTO) 30.5 % (20.0-45.0); MEAN CORPUSCULAR HEMOGLOBIN 26.8 PG (27.0-31.0); MEAN CORPUSCULAR HGB CONC 31.4 G/DL (32.0-36.0); MEAN CORPUSCULAR VOLUME 85 FL (80-99); MEAN PLATELET VOLUME 6.6 FL (6.5-10.1); MONOCYTES % (AUTO) 9.7 % (1.0-10.0); NEUTROPHILS % (AUTO) 56.4 % (45.0-75.0); PLATELET COUNT 336 K/UL (150-450); RED BLOOD COUNT 3.74 M/UL (4.20-5.40); RED CELL DISTRIBUTION WIDTH 17.6 % (11.6-14.8); WHITE BLOOD COUNT 6.4 K/UL (4.8-10.8)
[2016-12-17 07:30] LABS: ALANINE AMINOTRANSFERASE 15 U/L (3-33); ALBUMIN/GLOBULIN RATIO 1.4 (1.0-2.7); ANION GAP 13 (5-15); ASPARTATE AMINO TRANSFERASE 17 U/L (5-40); CALCIUM 9.7 mg/dL (8.6-10.2); CARBON DIOXIDE 28 mEQ/L (20-30); CHLORIDE 99 mEQ/L (98-107); CREATININE 0.7 mg/dL (0.5-0.9); GLOMERULAR FILTRATION RATE > 60 mL/min (>60); HEMOLYSIS 2; POTASSIUM 3.9 mEQ/L (3.4-4.9); SODIUM 140 mEQ/L (135-145); TOTAL PROTEIN 7.3 g/dL (6.6-8.7)
[2016-12-17 08:03] VITALS: BP 107/60
[2016-12-17] MEDS: Docusate 100mg cap ORAL SCH ×2 (08:18→20:50)
[2016-12-17] MEDS: DULoxetine 30mg cap ORAL SCH ×2 (08:18→17:10)
[2016-12-17] MEDS: Heparin 5000 units/ml inj SUBQ SCH ×2 (08:25→20:51)
[2016-12-17] MEDS ORDERED: ALPRAZolam 0.25mg tab ORAL PRN (09:45)
[2016-12-17] MEDS ORDERED: D5 1/2NS 1000ml IV ONE (10:45)
[2016-12-17 11:40] VITALS: BP 106/60
[2016-12-17] MEDS: Norco 5mg/325mg tab ORAL PRN ×2 (14:25→20:49)
--- NOTE | 2016-12-17 15:23 | Neurology Progress Note ---
Interim History Interim History ROS Limited/Unobtainable: Yes Complaints: pain R shoulder,R knee, generalised aches/pain, low backpain Events: no taste, Objective Physical Exam Last Vital Signs Date Time Temp Pulse Resp B/P Pulse Ox O2 Delivery O2 Flow Rate FiO2 12/17/16 11:40 98.1 96 20 106/60 98 Room Air 12/13/16 20:00 131.0 73 Laboratory Tests Test 12/17/16 05:05 White Blood Count 6.4 K/UL (4.8-10.8) Red Blood Count 3.74 M/UL (4.20-5.40) L Hemoglobin 10.0 G/DL (12.0-16.0) L Hematocrit 31.9 % (37.0-47.0) L Mean Corpuscular Volume 85 FL (80-99) Mean Corpuscular Hemoglobin 26.8 PG (27.0-31.0) L Mean Corpuscular Hemoglobin Concent 31.4 G/DL (32.0-36.0) L Red Cell Distribution Width 17.6 % (11.6-14.8) H Platelet Count 336 K/UL (150-450) Mean Platelet Volume 6.6 FL (6.5-10.1) Neutrophils (%) (Auto) 56.4 % (45.0-75.0) Lymphocytes (%) (Auto) 30.5 % (20.0-45.0) Monocytes (%) (Auto) 9.7 % (1.0-10.0) Eosinophils (%) (Auto) 2.7 % (0.0-3.0) Basophils (%) (Auto) 0.6 % (0.0-2.0) Sodium Level 140 mEQ/L (135-145) Potassium Level 3.9 mEQ/L (3.4-4.9) Chloride Level 99 mEQ/L (98-107) Carbon Dioxide Level 28 mEQ/L (20-30) Anion Gap 13 (5-15) Blood Urea Nitrogen 19 mg/dL (7-23) Creatinine 0.7 mg/dL (0.5-0.9) Estimat Glomerular Filtration Rate > 60 mL/min (>60) Glucose Level 106 mg/dL (74-106) Calcium Level 9.7 mg/dL (8.6-10.2) Total Bilirubin 0.3 mg/dL (0.0-1.2) Aspartate Amino Transf (AST/SGOT) 17 U/L (5-40) Alanine Aminotransferase (ALT/SGPT) 15 U/L (3-33) Alkaline Phosphatase 82 U/L (35-104) Total Protein 7.3 g/dL (6.6-8.7) Albumin 4.3 g/dL (3.5-5.2) Globulin 3.0 g/dL Albumin/Globulin Ratio 1.4 (1.0-2.7) General: well developed, well nourished, no acute distress, other - , diffuse tenderness shouldersR>L, Rknee,, low back/upper back Head: normocophalic, atraumatic Neck: other - tender EENT: benign Neurologic Exam Mental Status: awake, alert, other - poor historian slow responces, now coherent follows all commands Speech: normal speech, no dysarthia, other - slow Language: normal language, no aphasia Cranial Nerve II: fundus normal, visual mart, no papilledema Cranial Nerves III, IV, : PERRLA, EOMI, pupils Cranial Nerve V: temporales function normal, masseters function normal, pterygoids function normal Cranial Nerve VII: no facial asymmetry, normal facial expressions Cranial Nerve VIII: normal hearing, no nystagmus Cranial Nerve IX: normal palate elevation, gag response Cranial Nerve X: no voice hoarseness Cranial Nerve XI: SCM symmetric, trapezii function normal Cranial Nerve XII: tongue midline, no tongue atrophy/fasciculations Motor System: normal muscle tone, no involuntary movement, no muscle wasting, other - poor efforts, moan, able lift arms legs against gravity briefly , R =L Sensory: other - inconsistant Coordination: normal finger to nose bilaterally - very slow Deep Tendon Reflexes: 1+ ankle (L), 1+ ankle (R), 1+ bicep (L), 1+ bicep (R), 1 + brachioradialis (L), 1+ brachioradialis (R), 1+ tricep (L), 1+ tricep (R), 2+ knee (L), 3+ knee (R) Reflexes: flexor plantar (L), flexor plantar (R) Stance: other Gait: other - slow stooped, with assist Impression/Recommendations Problems: (1) Closed TBI (traumatic brain injury) (2) h/o intracranial bleed, now resolved (3) Closed T2 fracture (4) depression, anxiety (5) posttraumatic generalised seizure disorder. Status: stable, unchanged Recommendations neuroreevaluation # [phone] ----- pt/ot/rehab cont present rx ok d/c to rehab BAYRON CAUSEY Dec 17, 2016 15:23
[2016-12-17 15:57] VITALS: BP 112/67
[2016-12-17 20:32] VITALS: BP 125/85
--- NOTE | 2016-12-17 22:33 | Cardiology Progress Note ---
Assessment/Plan Assessment/Plan 1. Posttraumatic pain in different parts of the body including the neck, low back, and right knee pain. 2. Posttraumatic right cerebral hemorrhage. 3. Posttraumatic convulsion and seizure history. 4. Posttraumatic quadriparesis and quadriplegia. 5. Urinary incontinence. 6. Right shoulder impingement syndrome with subacromial bursitis and supraspinatus tendinitis history. 7. Posttraumatic left-sided rib fracture. urine neg growth on po pain meds on ly no iv narcotics awaiat snf admission naueated today got zofranand compazien drandk ensure but not otehr food will have labs isan am dc tramadol dc meloxicam znatac labs look good Subjective Cardiovascular: Denies: chest pain, lightheadedness Respiratory: Denies: shortness of breath Gastrointestinal/Abdominal: Reports: other - had bm she says, Denies: abdominal pain Genitourinary: Denies: burning Subjective Objective Last 24 Hour Vital Signs Date Time Temp Pulse Resp B/P Pulse Ox O2 Delivery O2 Flow Rate FiO2 12/17/16 20:32 97.3 85 19 125/85 98 Room Air 12/17/16 15:57 97.7 83 20 112/67 98 Room Air 12/17/16 11:40 98.1 96 20 106/60 98 Room Air 12/17/16 08:03 97.7 82 20 107/60 99 Room Air 12/17/16 04:11 98.1 90 18 102/65 98 Room Air 12/17/16 00:05 98.2 84 18 101/62 99 Room Air General Appearance: alert Neck: supple Cardiovascular: normal rate, regular rhythm Respiratory/Chest: lungs clear Abdomen: normal bowel sounds, non tender, soft Extremities: no swelling Intake and Output 12/16/16 12/17/16 19:00 07:00 Intake Total 1240 ml 240 ml Balance 1240 ml 240 ml Intake Oral 1240 ml 240 ml # Voids 4 1 # Bowel Movements 3 Laboratory Tests Test 12/17/16 05:05 White Blood Count 6.4 K/UL (4.8-10.8) Red Blood Count 3.74 M/UL (4.20-5.40) L Hemoglobin 10.0 G/DL (12.0-16.0) L Hematocrit 31.9 % (37.0-47.0) L Mean Corpuscular Volume 85 FL (80-99) Mean Corpuscular Hemoglobin 26.8 PG (27.0-31.0) L Mean Corpuscular Hemoglobin Concent 31.4 G/DL (32.0-36.0) L Red Cell Distribution Width 17.6 % (11.6-14.8) H Platelet Count 336 K/UL (150-450) Mean Platelet Volume 6.6 FL (6.5-10.1) Neutrophils (%) (Auto) 56.4 % (45.0-75.0) Lymphocytes (%) (Auto) 30.5 % (20.0-45.0) Monocytes (%) (Auto) 9.7 % (1.0-10.0) Eosinophils (%) (Auto) 2.7 % (0.0-3.0) Basophils (%) (Auto) 0.6 % (0.0-2.0) Sodium Level 140 mEQ/L (135-145) Potassium Level 3.9 mEQ/L (3.4-4.9) Chloride Level 99 mEQ/L (98-107) Carbon Dioxide Level 28 mEQ/L (20-30) Anion Gap 13 (5-15) Blood Urea Nitrogen 19 mg/dL (7-23) Creatinine 0.7 mg/dL (0.5-0.9) Estimat Glomerular Filtration Rate > 60 mL/min (>60) Glucose Level 106 mg/dL (74-106) Calcium Level 9.7 mg/dL (8.6-10.2) Total Bilirubin 0.3 mg/dL (0.0-1.2) Aspartate Amino Transf (AST/SGOT) 17 U/L (5-40) Alanine Aminotransferase (ALT/SGPT) 15 U/L (3-33) Alkaline Phosphatase 82 U/L (35-104) Total Protein 7.3 g/dL (6.6-8.7) Albumin 4.3 g/dL (3.5-5.2) Globulin 3.0 g/dL Albumin/Globulin Ratio 1.4 (1.0-2.7) TWIN MARTINEZ Dec 17, 2016 22:33
[2016-12-18 00:33] VITALS: BP 115/65
[2016-12-18 04:00] VITALS: BP 113/70
[2016-12-18 08:00] VITALS: BP 101/48
[2016-12-18] MEDS: DULoxetine 30mg cap ORAL SCH (08:43)
[2016-12-18] MEDS: Docusate 100mg cap ORAL SCH (08:43)
[2016-12-18] MEDS: Norco 5mg/325mg tab ORAL PRN (08:45)
[2016-12-18] MEDS: Heparin 5000 units/ml inj SUBQ SCH (08:49)
[2016-12-18 12:00] VITALS: BP 102/59
--- NOTE | 2016-12-18 13:06 | Cardiology Progress Note ---
Assessment/Plan Assessment/Plan 1. Posttraumatic pain in different parts of the body including the neck, low back, and right knee pain. 2. Posttraumatic right cerebral hemorrhage. 3. Posttraumatic convulsion and seizure history. 4. Posttraumatic quadriparesis and quadriplegia. 5. Urinary incontinence. 6. Right shoulder impingement syndrome with subacromial bursitis and supraspinatus tendinitis history. 7. Posttraumatic left-sided rib fracture. urine neg growth on po pain meds on ly no iv narcotics awaiat snf admission ate little no nausea today lavonne ensure will have labs isan am off tramadol off meloxicam znatac doign better Subjective Cardiovascular: Denies: chest pain, lightheadedness, palpitations Respiratory: Denies: shortness of breath Gastrointestinal/Abdominal: Denies: abdominal pain, constipated Genitourinary: Denies: burning Subjective Objective Last 24 Hour Vital Signs Date Time Temp Pulse Resp B/P Pulse Ox O2 Delivery O2 Flow Rate FiO2 12/18/16 08:00 97.7 91 18 101/48 98 Room Air 12/18/16 04:00 97.7 76 19 113/70 97 Room Air 12/18/16 00:33 97.5 73 18 115/65 96 Room Air 12/17/16 20:32 97.3 85 19 125/85 98 Room Air 12/17/16 15:57 97.7 83 20 112/67 98 Room Air General Appearance: no apparent distress, alert, other - sitting up in achari watchin gmovie on her phone says walked Cardiovascular: normal rate, regular rhythm Respiratory/Chest: lungs clear, normal breath sounds Abdomen: non tender, soft Extremities: non-tender, no swelling Intake and Output 12/17/16 12/18/16 19:00 07:00 Intake Total 700 ml 480 ml Balance 700 ml 480 ml Intake Oral 700 ml 480 ml # Voids 3 2 TWIN MARTINEZ Dec 18, 2016 13:06
[2016-12-21] MEDS ORDERED: GABAPENTIN600 MG ORAL (14:14)
--- NOTE | 2016-12-21 14:23 | Discharge Summary ---
Discharge Summary Hospital Course Date of Admission Dec 09, 2016 at 16:51 Date of Discharge Dec 18, 2016 at 15:34 Admitting Diagnosis weakness HPI Lary Orlando is a 51 year old female who was admitted on Dec 09, 2016 at 16: 51 for Weakness Hospital Course dc summary #[id number] Discharge Medications Changed Medications: Gabapentin* (Gabapentin*) 600 Mg Tablet 600 MG ORAL TID for IN THE MORNING, WITH FOOD for 300 Days, #90 TAB (Changed from: DAILY) Continued Medications: Celecoxib* (Celebrex*) 100 Mg Capsule 100 MG ORAL DAILY for WITH FOOD Duloxetine (Cymbalta) 20 Mg Capsule.dr 20 MG ORAL DAILY Hydrocodone Bit/Acetaminophen 5-325* ([place] 5-325*) 1 Each Tablet 1 TAB ORAL Q3/4H PRN for FOR PAIN, NTE 4 TABS DAILY Levetiracetam (Levetiracetam) 750 Mg Tablet 750 MG ORAL Q12HR Naproxen* (Naproxen*) 500 Mg Tablet 500 MG ORAL TWICE A DAY for WITH FOOD Discharge Condition Upon Discharge: stable Discharge Disposition Patient was discharged to Home () Discharge Diagnoses: Discharge Instructions Discharge Instructions Special Instructions I have been assigned to complete a D/C Summary on this account. I was not involved in the patient management Luisana Sarmiento NP ([place]) Dec 21, 2016 14:23
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
== END 2016-12-18 15:34 | disposition home or self-care (01) | DRG 91 ==
LOC: EDBEDREQ 16:23 → EDBEDREQSVC 16:36 → EMR 16:42 → 2E 16:51 → EDBEDREQ 18:25 → 2E 20:14 → 3E 12-12 21:52
DX: G89.21 Chronic pain due to trauma (principal); R53.2 Functional quadriplegia; G95.89 Other specified diseases of spinal cord; R56.1 Post traumatic seizures; S22.32XS Fracture of one rib, left side, sequela; I10 Essential (primary) hypertension; M26.621 Arthralgia of right temporomandibular joint; M54.5 Low back pain; M54.2 Cervicalgia; M25.561 Pain in right knee; Z87.820 Personal history of traumatic brain injury; T14.8 Other injury of unspecified body region; V89.2XXS Person injured in unspecified motor-vehicle accident, traffic, sequela; M75.41 Impingement syndrome of right shoulder; F41.8 Other specified anxiety disorders; F41.0 Panic disorder [episodic paroxysmal anxiety]; H91.8X1 Other specified hearing loss, right ear; R26.81 Unsteadiness on feet; S22.029 Unspecified fracture of second thoracic vertebra; N39.498 Other specified urinary incontinence
CPT/HCPCS: 36415; 36600; 70450; 70551; 71010; 72141; 72146; 74000; 80048; 80053; 80061; 80299; 80300; 81001; 81003; 81025; 82550; 82553; 82607; 82803; 82962; 83036; 83735; 84443; 84484; 85025; 85610; 85730; 87086; 87181; 93005; 95819; J2405